=== PATIENT | female | born 1935 | race Caucasian/White ===

== ENCOUNTER 2018-09-21 12:00 | Emergency (ER) | payer MEDICARE | END 2018-09-21 13:29 | disposition home or self-care (01) | LOC: EDH 12:00 | DX: S93.401A Sprain of unspecified ligament of right ankle, initial encounter (principal); I10 Essential (primary) hypertension; E78.5 Hyperlipidemia, unspecified; Z88.2 Allergy status to sulfonamides; Z86.718 Personal history of other venous thrombosis and embolism; X58.XXXA Exposure to other specified factors, initial encounter; Y93.89 Activity, other specified; Y92.89 Other specified places as the place of occurrence of the external cause; Y99.8 Other external cause status | CPT/HCPCS: 73590; 73610 ==

== ENCOUNTER → 2018-10-13 | Outpatient (CLI) | payer MEDICARE | END | disposition home or self-care (01) | LOC: RAH 11:04 | PROVIDERS: ATTEND Radiology Radiation Oncology | DX: D05.11 Intraductal carcinoma in situ of right breast (principal); Z85.3 Personal history of malignant neoplasm of breast | CPT/HCPCS: 77066; G0279 ==

== ENCOUNTER → 2019-10-14 | Outpatient (CLI) | payer MEDICARE | END | disposition home or self-care (01) | LOC: RAH 13:12 | PROVIDERS: ATTEND Radiology Radiation Oncology | DX: Z08 Encounter for follow-up examination after completed treatment for malignant neoplasm (principal); Z85.3 Personal history of malignant neoplasm of breast | CPT/HCPCS: 77066; G0279 ==

== ENCOUNTER → 2020-12-08 | Outpatient (CLI) | payer MEDICARE | END | disposition home or self-care (01) | LOC: RAH 11:00 | PROVIDERS: ATTEND Radiology Radiation Oncology | DX: R92.1 Mammographic calcification found on diagnostic imaging of breast (principal); Z85.3 Personal history of malignant neoplasm of breast | CPT/HCPCS: 77066 ==

== ENCOUNTER → 2022-09-10 | Outpatient (CLI) | payer MEDICARE | END | disposition home or self-care (01) | LOC: SHCH 13:01 | PROVIDERS: ATTEND Internal Medicine | DX: I08.0 Rheumatic disorders of both mitral and aortic valves (principal); I31.39 Other pericardial effusion (noninflammatory); R94.31 Abnormal electrocardiogram [ECG] [EKG] | CPT/HCPCS: 93306 ==

== ENCOUNTER 2022-10-04 11:31 | Inpatient (IN) | payer MEDICARE ==
[~2022-10-04] VITALS: Ht 154.9 cm; Wt 62.4 kg
[2022-10-04] MEDS ORDERED: IPRATROPIUM 0.5 MG/2.5 ML INH IH ONE (12:00)
[2022-10-04 12:03] LABS: BASOPHILS % (AUTO) 0.6 % (0.0-5.0); HEMATOCRIT 47.4 % (36-48); LYMPHOCYTES % (AUTO) 37.6 % (21.0-51.0); MEAN CORPUSCULAR HEMOGLOBIN 29.8 pg (27.0-33.0); MEAN CORPUSCULAR HGB CONC 32.5 g/dL (32.0-36.0); MEAN CORPUSCULAR VOLUME 91.7 fL (79-99); MONOCYTES % (AUTO) 5.8 % (3.0-13.0); NEUTROPHILS % (AUTO) 53.7 % (40.0-77.0); PLATELET COUNT (AUTO) 162 K/uL (130-400); RED BLOOD CELL COUNT(AUTO) 5.17 MIL/uL (4.00-5.50); RED CELL DISTRIBUTION WIDTH 12.7 % (11.0-15.5); WHITE BLOOD COUNT (AUTO) 13.3 K/uL (4.8-10.8)
[2022-10-04 12:09] LABS: ABG BASE EXCESS -9.1 mmol/L (-2.0-3.0); ABG HCO3 22.8 mmol/L (21.0-28.0); ABG OXYGEN SATURATION 97.8 % (95.0-99.0); ABG PCO2 80 mmHg (32-45)
[2022-10-04 12:25] LABS: POTASSIUM 5.5 mmol/L (3.5-5.1)
[2022-10-04 12:36] LABS: ALBUMIN 3.9 g/dL (3.5-5.0); TOTAL PROTEIN, SERUM 7.6 g/dL (6.0-8.3)
[2022-10-04 12:41] LABS: ABG BASE EXCESS -6.9 mmol/L (-2.0-3.0); ABG HCO3 20.7 mmol/L (21.0-28.0); ABG OXYGEN SATURATION 95.7 % (95.0-99.0); ABG PCO2 50 mmHg (32-45)
[2022-10-04 12:47] LABS: B-TYPE NATRIURETIC PEPTIDE 1170 pg/mL (0-100)
[2022-10-04] MEDS ORDERED: FUROSEMIDE 20MG VIAL IV ONE (13:00)
[2022-10-04] MEDS ORDERED: CEFTRIAXONE 2GM VIAL IVPB ONE (13:00)
[2022-10-04] MEDS ORDERED: IPRATROPIUM 0.5 MG/2.5 ML INH IH PRN (13:30)
[2022-10-04 14:03] LABS: HEMOGLOBIN A1C 5.3 % (4.0-6.0)
[2022-10-04] MEDS: DOXYCYCLINE 100MG+NS 250ML IV SCH (14:11)
[2022-10-04 14:27] LABS: MAGNESIUM 1.9 mg/dL (1.80-2.40)
[2022-10-04] MEDS ORDERED: TIOT18CA3 IH (15:08)
[2022-10-04] MEDS ORDERED: METO1TAB13 PO (15:08)
[2022-10-04] MEDS ORDERED: RIVA20TA PO (15:09)
[2022-10-04] MEDS ORDERED: ATOR40TA71 PO (15:12)
[2022-10-04] MEDS ORDERED: LOSA25TA41 PO (15:13)
[2022-10-04] MEDS ORDERED: FUROSEMIDE 40MG VIAL IV ONE (15:30)
[2022-10-04] MEDS ORDERED: NA ZIRCON CYCLOSIL(LOKELMA 10GM) PO ONE (15:30)
[2022-10-04] MEDS ORDERED: FUROSEMIDE 40MG VIAL IV SCH (17:00)
[2022-10-04 17:40] VITALS: BP 113/61
[2022-10-04] MEDS ORDERED: SODIUM CHLORIDE 3% FOR INHALATION 4 ML/AMP VIAL.NEB IH ONE ×2 (18:41→23:16)
[2022-10-04 19:24] VITALS: BP 97/55
[2022-10-04] MEDS: ATORVASTATIN 40 MG TABLET PO SCH (20:36)
[2022-10-04] MEDS: LOSARTAN 25 MG TABLET PO SCH (20:36)
[2022-10-04 21:00] VITALS: BP 90/54
[2022-10-04] MEDS ORDERED: RIVAROXABAN 20 MG TABLET PO SCH (21:00)
[2022-10-04 21:05] LABS: CREATININE 1.1 mg/dL (0.5-1.5); MAGNESIUM 1.6 mg/dL (1.80-2.40); POTASSIUM 4.3 mmol/L (3.5-5.1)
[2022-10-04 22:00] VITALS: BP 109/58
[2022-10-05] VITALS (9 sets, daily range): BP systolic 97–141; BP diastolic 49–93
[2022-10-05] MEDS ORDERED: ASPIRIN 325MG EC TAB PO ONE (00:10)
[2022-10-05] MEDS: DOXYCYCLINE 100MG+NS 250ML IV SCH ×2 (00:23→14:11)
[2022-10-05] MEDS: FUROSEMIDE 40MG VIAL IV SCH ×2 (04:14→16:51)
[2022-10-05] MEDS ORDERED: SODIUM CHLORIDE 3% FOR INHALATION 4 ML/AMP VIAL.NEB IH ONE (06:25)
[2022-10-05 06:48] LABS: HEMATOCRIT 41.5 % (36-48); MEAN CORPUSCULAR HEMOGLOBIN 30.3 pg (27.0-33.0); MEAN CORPUSCULAR HGB CONC 32.5 g/dL (32.0-36.0); MEAN CORPUSCULAR VOLUME 93.3 fL (79-99); RED BLOOD CELL COUNT(AUTO) 4.45 MIL/uL (4.00-5.50); RED CELL DISTRIBUTION WIDTH 12.9 % (11.0-15.5); WHITE BLOOD COUNT (AUTO) 9.9 K/uL (4.8-10.8)
[2022-10-05 07:22] LABS: CREATININE 1.2 mg/dL (0.5-1.5)
[2022-10-05] MEDS: CEFTRIAXONE 1G VIAL IVP SCH (09:02)
[2022-10-05] MEDS ORDERED: METOPROLOL TARTRATE 1 MG/ML 5ML VIAL IV ONE ×2 (17:48)
[2022-10-05] MEDS ORDERED: METOPROLOL TARTRATE 1 MG/ML 5ML VIAL IV SCH (18:00)
[2022-10-05] MEDS ORDERED: AMIODARONE 900MG VIAL 360 MG in DEXTROSE 5%-WATER 200 ML IV SCH (18:30)
[2022-10-05] MEDS ORDERED: HEPARIN 25,000 UNITS/250ML D5W 250 ML IV SCH (18:30)
[2022-10-05 18:39] LABS: BASOPHILS % (AUTO) 0.5 % (0.0-5.0); EOSINOPHILS % (AUTO) 0.6 % (0.0-8.0); HEMATOCRIT 39.7 % (36-48); LYMPHOCYTES % (AUTO) 22.2 % (21.0-51.0); MEAN CORPUSCULAR HEMOGLOBIN 29.9 pg (27.0-33.0); MEAN CORPUSCULAR HGB CONC 33.2 g/dL (32.0-36.0); MONOCYTES % (AUTO) 6.8 % (3.0-13.0); NEUTROPHILS % (AUTO) 69.6 % (40.0-77.0); PLATELET COUNT (AUTO) 196 K/uL (130-400); RED BLOOD CELL COUNT(AUTO) 4.41 MIL/uL (4.00-5.50); RED CELL DISTRIBUTION WIDTH 12.9 % (11.0-15.5); WHITE BLOOD COUNT (AUTO) 9.3 K/uL (4.8-10.8)
[2022-10-05] MEDS ORDERED: AMIODARONE 900MG VIAL 150 MG in DEXTROSE 5%-WATER 100 ML IV SCH (18:45)
[2022-10-05] MEDS: MAGNESIUM 2GM PREMIX 50ML 50 ML IV SCH (19:13)
[2022-10-05 22:46] LABS: MAGNESIUM 2.6 mg/dL (1.80-2.40); POTASSIUM 4.7 mmol/L (3.5-5.1)
[2022-10-05] MEDS ORDERED: HEPARIN 5,000 UNIT VIAL ONE (22:59)
[2022-10-05] MEDS: LOSARTAN 25 MG TABLET PO SCH (23:05)
[2022-10-05] MEDS: ATORVASTATIN 40 MG TABLET PO SCH (23:05)
[2022-10-05] MEDS ORDERED: HEPARIN 5,000 UNIT VIAL IV SCH (23:30)
[2022-10-06 00:18] VITALS: BP 122/63
[2022-10-06] MEDS ORDERED: AMIODARONE 900MG VIAL 540 MG in DEXTROSE 5%-WATER 300 ML IV SCH (00:30)
[2022-10-06] MEDS: DOXYCYCLINE 100MG+NS 250ML IV SCH ×2 (02:08→14:06)
[2022-10-06 03:18] VITALS: BP 124/63
[2022-10-06 04:08] LABS: BASOPHILS % (AUTO) 0.4 % (0.0-5.0); EOSINOPHILS % (AUTO) 1.9 % (0.0-8.0); HEMATOCRIT 38.7 % (36-48); LYMPHOCYTES % (AUTO) 25.5 % (21.0-51.0); MEAN CORPUSCULAR HEMOGLOBIN 30.3 pg (27.0-33.0); MEAN CORPUSCULAR HGB CONC 32.8 g/dL (32.0-36.0); MEAN CORPUSCULAR VOLUME 92.4 fL (79-99); MONOCYTES % (AUTO) 9.1 % (3.0-13.0); NEUTROPHILS % (AUTO) 62.7 % (40.0-77.0); PLATELET COUNT (AUTO) 194 K/uL (130-400); RED BLOOD CELL COUNT(AUTO) 4.19 MIL/uL (4.00-5.50); RED CELL DISTRIBUTION WIDTH 13.1 % (11.0-15.5); WHITE BLOOD COUNT (AUTO) 9.4 K/uL (4.8-10.8)
[2022-10-06 05:25] LABS: CREATININE 1.4 mg/dL (0.5-1.5); POTASSIUM 4.1 mmol/L (3.5-5.1)
[2022-10-06] MEDS: FUROSEMIDE 40MG VIAL IV SCH (06:02)
[2022-10-06 08:00] VITALS: BP 116/61
[2022-10-06] MEDS: CEFTRIAXONE 1G VIAL IVP SCH (09:14)
[2022-10-06 12:00] VITALS: BP 122/57
[2022-10-06 16:00] VITALS: BP 116/91
[2022-10-06] MEDS: BUDESONIDE 0.5 MG/2 ML INH IH SCH (18:21)
[2022-10-06 20:00] VITALS: BP 156/87
[2022-10-06] MEDS: LOSARTAN 25 MG TABLET PO SCH (20:54)
[2022-10-06] MEDS: ATORVASTATIN 40 MG TABLET PO SCH (20:54)
[2022-10-06] MEDS ORDERED: AMIODARONE 150MG VIAL ONE (23:47)
[2022-10-07] VITALS (13 sets, daily range): BP systolic 107–160; BP diastolic 48–88
[2022-10-07] MEDS ORDERED: AMIODARONE 150MG VIAL 150 MG in DEXTROSE 5%-WATER 100 ML IV SCH ×2
[2022-10-07] MEDS ORDERED: AMIODARONE 900MG VIAL 360 MG in DEXTROSE 5%-WATER 200 ML IV SCH ×2
[2022-10-07] MEDS: DOXYCYCLINE 100MG+NS 250ML IV SCH ×2 (00:29→12:55)
[2022-10-07 02:10] LABS: BASOPHILS % (AUTO) 0.6 % (0.0-5.0); EOSINOPHILS % (AUTO) 1.6 % (0.0-8.0); LYMPHOCYTES % (AUTO) 23.1 % (21.0-51.0); MEAN CORPUSCULAR HEMOGLOBIN 30.5 pg (27.0-33.0); MEAN CORPUSCULAR HGB CONC 33.5 g/dL (32.0-36.0); MEAN CORPUSCULAR VOLUME 90.9 fL (79-99); NEUTROPHILS % (AUTO) 65.4 % (40.0-77.0); PLATELET COUNT (AUTO) 185 K/uL (130-400); RED BLOOD CELL COUNT(AUTO) 4.07 MIL/uL (4.00-5.50); RED CELL DISTRIBUTION WIDTH 12.9 % (11.0-15.5); WHITE BLOOD COUNT (AUTO) 8.6 K/uL (4.8-10.8)
[2022-10-07 02:17] LABS: CREATININE 1.1 mg/dL (0.5-1.5); POTASSIUM 3.9 mmol/L (3.5-5.1)
[2022-10-07] MEDS ORDERED: AMIODARONE 900MG VIAL 540 MG in DEXTROSE 5%-WATER 300 ML IV SCH ×2 (06:00→07:30)
[2022-10-07] MEDS: BUDESONIDE 0.5 MG/2 ML INH IH SCH ×2 (06:59→19:01)
[2022-10-07] MEDS ORDERED: VERAPAMIL HCL 2.5 MG/ML VIAL ONE (07:09)
[2022-10-07] MEDS ORDERED: LIDOCAINE HCL 400MG/20ML VIAL ONE (07:09)
[2022-10-07] MEDS ORDERED: HEPARIN 10,000 UNIT/10ML (1,000 UNIT/ML) VIAL ONE (07:09)
[2022-10-07] MEDS ORDERED: IOHEXOL 350 MG/ML 100ML INFUS..BTL IV ONE (07:09)
[2022-10-07] MEDS ORDERED: NITROGLYCERIN 50MG VIAL ONE (07:09)
[2022-10-07] MEDS ORDERED: FENTANYL CITRATE PF 50 MCG/1 ML 2ML VIAL ONE (08:00)
[2022-10-07] MEDS ORDERED: MIDAZOLAM HCL 1 MG/ML 2ML VIAL ONE (08:00)
[2022-10-07] MEDS: FUROSEMIDE 40 MG TABLET PO SCH ×2 (08:17→09:47)
[2022-10-07] MEDS ORDERED: 0.9%NACL 1000ML 1,000 ML IV SCH (08:30)
[2022-10-07] MEDS ORDERED: GLUCAGON 1MG KIT 1 MG ML IM PRN (08:30)
[2022-10-07] MEDS ORDERED: DEXTROSE 50%-WATER 50 ML DISP.SYRIN IV PRN (08:30)
[2022-10-07] MEDS: METOPROLOL SUCCINATE 25 MG TAB.SR.24H PO SCH (09:46)
[2022-10-07] MEDS: CEFTRIAXONE 1G VIAL IVP SCH (09:47)
[2022-10-07] MEDS: MAGNESIUM 2GM PREMIX 50ML 50 ML IV SCH (11:07)
[2022-10-07] MEDS: RIVAROXABAN 15 MG TABLET PO SCH (17:44)
[2022-10-07] MEDS: LOSARTAN 25 MG TABLET PO SCH (19:59)
[2022-10-07] MEDS: ATORVASTATIN 40 MG TABLET PO SCH (19:59)
[2022-10-08] VITALS: BP 147/79
[2022-10-08 03:50] VITALS: BP_SYST 126; BP_SYST 135; BP_DIAS 55; BP_DIAS 71
[2022-10-08] MEDS: BUDESONIDE 0.5 MG/2 ML INH IH SCH (06:50)
[2022-10-08 07:08] VITALS: BP 152/97
[2022-10-08] MEDS: METOPROLOL SUCCINATE 25 MG TAB.SR.24H PO SCH (07:23)
[2022-10-08] MEDS: FUROSEMIDE 40 MG TABLET PO SCH (08:23)
[2022-10-08] MEDS ORDERED: METOPROLOL SUCCINATE 50 MG TAB.SR.24H PO SCH (09:00)
[2022-10-08 12:28] VITALS: BP 140/75
[2022-10-08 13:43] LABS: ALBUMIN 3.5 g/dL (3.5-5.0); CREATININE 1.1 mg/dL (0.5-1.5); MAGNESIUM 1.7 mg/dL (1.80-2.40); POTASSIUM 4.1 mmol/L (3.5-5.1); TOTAL PROTEIN, SERUM 7.2 g/dL (6.0-8.3)
[2022-10-08] MEDS: MAGNESIUM 2GM PREMIX 50ML 50 ML IV SCH (15:03)
[2022-10-08] MEDS: RIVAROXABAN 15 MG TABLET PO SCH (16:12)
[2022-10-08 16:52] VITALS: BP 156/72
[2022-10-08] MEDS ORDERED: FURO40TA7 PO (17:47)
== END 2022-10-08 19:17 | disposition home or self-care (01) | DRG 280 ==
LOC: EDH 11:31 → EDHIP 13:24 → 2DH 17:41
PROVIDERS: ADMIT Internal Medicine; ATTEND Internal Medicine
PROC: 5A09357 Assistance with Respiratory Ventilation, Less than 24 Consecutive Hours, Continuous Positive Airway Pressure (ICD-10-PCS; 2022-10-04)
PROC: 4A023N7 Measurement of Cardiac Sampling and Pressure, Left Heart, Percutaneous Approach (ICD-10-PCS; principal; 2022-10-07)
PROC: B2111ZZ Fluoroscopy of Multiple Coronary Arteries using Low Osmolar Contrast (ICD-10-PCS; 2022-10-07)
DX: I11.0 Hypertensive heart disease with heart failure (principal); I21.4 Non-ST elevation (NSTEMI) myocardial infarction; I50.43 Acute on chronic combined systolic (congestive) and diastolic (congestive) heart failure; J96.22 Acute and chronic respiratory failure with hypercapnia; J96.21 Acute and chronic respiratory failure with hypoxia; J18.9 Pneumonia, unspecified organism; E87.29 Other acidosis; N17.9 Acute kidney failure, unspecified; I31.39 Other pericardial effusion (noninflammatory); I25.10 Atherosclerotic heart disease of native coronary artery without angina pectoris; Z20.822 Contact with and (suspected) exposure to COVID-19; I48.91 Unspecified atrial fibrillation; E78.00 Pure hypercholesterolemia, unspecified; E87.5 Hyperkalemia; J45.909 Unspecified asthma, uncomplicated; Z79.899 Other long term (current) drug therapy; Z79.01 Long term (current) use of anticoagulants; I25.2 Old myocardial infarction; Z86.718 Personal history of other venous thrombosis and embolism; Z85.3 Personal history of malignant neoplasm of breast; Z90.10 Acquired absence of unspecified breast and nipple; Z92.21 Personal history of antineoplastic chemotherapy; Z92.3 Personal history of irradiation
CPT/HCPCS: 36415; 36600; 71045; 80048; 80053; 82550; 82803; 83036; 83605; 83735; 83874; 83880; 84132; 84145; 84443; 84484; 85025; 85027; 85730; 87040; 87071; 87205; 87635; 87804; 93005; 93306; 93356; 93458; 94640; 94660; 96374; 96375; 99156; 99157; 99291; C1769; G0378; J0282; J0696; J1644; J1940; J2250; J3010; J3475; J3490; J7060; Q9967

== ENCOUNTER → 2022-10-04 | Outpatient (CLI) | payer MEDICARE ==
[~2022-10-04] MED LIST: ATOR40TA71 PO; FURO40TA7 PO; LOSA25TA41 PO; METO1TAB13 PO; RIVA20TA PO; TIOT18CA3 IH
[2022-10-04 11:37] LABS: BASOPHILS % (AUTO) 0.7 % (0.0-5.0); EOSINOPHILS % (AUTO) 2.6 % (0.0-8.0); HEMATOCRIT 44.4 % (36-48); MEAN CORPUSCULAR HEMOGLOBIN 30.1 pg (27.0-33.0); MEAN CORPUSCULAR HGB CONC 32.7 g/dL (32.0-36.0); MEAN CORPUSCULAR VOLUME 92.1 fL (79-99); MONOCYTES % (AUTO) 6.6 % (3.0-13.0); NEUTROPHILS % (AUTO) 60.8 % (40.0-77.0); PLATELET COUNT (AUTO) 203 K/uL (130-400); RED BLOOD CELL COUNT(AUTO) 4.82 MIL/uL (4.00-5.50); RED CELL DISTRIBUTION WIDTH 12.9 % (11.0-15.5); WHITE BLOOD COUNT (AUTO) 10.5 K/uL (4.8-10.8)
[2022-10-04 11:51] LABS: POTASSIUM 5.2 mmol/L (3.5-5.1)
[2022-10-04 11:56] LABS: INR 1.33 (0.85-1.15); PROTHROMBIN TIME 14.3 SEC (9.6-11.6)
[2022-10-04 11:57] LABS: PARTIAL THROMBOPLASTIN TIME 40.4 SEC (26.3-35.5)
[2022-10-04 11:58] LABS: APPEARANCE,URINE CLEAR (CLEAR); BILIRUBIN,URINE NEGATIVE (NEGATIVE); COLOR,URINE COLORLESS (YELLOW); GLUCOSE, URINE (UA) NEGATIVE (NEGATIVE); KETONES,URINE NEGATIVE (NEGATIVE); LEUKOCYTE ESTERASE ,URINE NEGATIVE Leu/uL (NEGATIVE); NITRATE,URINE NEGATIVE (NEGATIVE); OCCULT BLOOD,URINE NEGATIVE (NEGATIVE); PH,URINE 6.5 (5.0-8.0); PROTEIN,URINE NEGATIVE (NEGATIVE); UROBILINOGEN,URINE 0.2 mg/dL (0.2-1.0)
[2022-10-04 12:19] LABS: B-TYPE NATRIURETIC PEPTIDE 823 pg/mL (0-100)
== END | disposition home or self-care (01) ==
LOC: DAH 10:00 → EDSTATUS 10:00
PROVIDERS: ATTEND Internal Medicine
DX: Z01.810 Encounter for preprocedural cardiovascular examination (principal); I42.9 Cardiomyopathy, unspecified; Z79.01 Long term (current) use of anticoagulants; Z79.899 Other long term (current) drug therapy; Z88.2 Allergy status to sulfonamides; Z91.040 Latex allergy status; Z88.8 Allergy status to other drugs, medicaments and biological substances
CPT/HCPCS: 36415; 80048; 81003; 83880; 85025; 85610; 85730

== ENCOUNTER → 2023-01-02 | Outpatient (CLI) | payer MEDICARE ==
[2023-01-02 13:15] LABS: CREATININE 1.1 mg/dL (0.5-1.5); POTASSIUM 4.9 mmol/L (3.5-5.1)
== END | disposition home or self-care (01) ==
LOC: LAB 08:18
PROVIDERS: ATTEND Internal Medicine
DX: I42.8 Other cardiomyopathies (principal)
CPT/HCPCS: 36415; 80048

== ENCOUNTER → 2023-04-08 | Outpatient (CLI) | payer MEDICARE ==
[2023-04-08 16:16] LABS: BASOPHILS # (AUTO) 0.04 K/uL (0.00-0.20); BASOPHILS % (AUTO) 0.6 % (0.0-5.0); EOSINOPHILS # (AUTO) 0.25 K/uL (0.00-0.70); EOSINOPHILS % (AUTO) 3.5 % (0.0-8.0); IMMATURE GRANULOCYTE ABSOLUTE 0.02 K/uL (0-1); LYMPHOCYTES % (AUTO) 27.7 % (21.0-51.0); MEAN CORPUSCULAR HEMOGLOBIN 30.7 pg (27.0-33.0); MEAN CORPUSCULAR HGB CONC 33.5 g/dL (32.0-36.0); MEAN CORPUSCULAR VOLUME 91.6 fL (79-99); MONOCYTES # (AUTO) 0.7 K/uL (0.1-1.0); MONOCYTES % (AUTO) 9.3 % (3.0-13.0); NEUTROPHILS # (AUTO) 4.2 K/uL (1.8-7.7); NEUTROPHILS % (AUTO) 58.6 % (40.0-77.0); PLATELET COUNT (AUTO) 244 K/uL (130-400); RED BLOOD CELL COUNT(AUTO) 4.04 MIL/uL (4.00-5.50); RED CELL DISTRIBUTION WIDTH 13.2 % (11.0-15.5); WHITE BLOOD COUNT (AUTO) 7.2 K/uL (4.8-10.8)
[2023-04-08 16:42] LABS: CREATININE 1.2 mg/dL (0.5-1.5)
== END | disposition home or self-care (01) ==
LOC: LAB 13:51
PROVIDERS: ATTEND Internal Medicine
DX: I42.8 Other cardiomyopathies (principal)
CPT/HCPCS: 36415; 80048; 83880; 85025

== ENCOUNTER → 2024-04-09 | Outpatient (CLI) | payer MEDICARE ==
[2024-04-12 10:59] LABS: CREATININE 1.1 mg/dL (0.5-1.0)
== END | disposition home or self-care (01) ==
LOC: LAB 15:02
PROVIDERS: ATTEND Internal Medicine
DX: R10.13 Epigastric pain (principal)
CPT/HCPCS: 36415; 82565; 84520

== ENCOUNTER → 2024-04-14 | Outpatient (CLI) | payer MEDICARE ==
[~2024-04-14] MED LIST changes: +GADOTERATE MEGLUMINE 10 MMOL/20 ML VIAL IV ONE
== END | disposition home or self-care (01) ==
LOC: RAH 07:52
PROVIDERS: ATTEND Internal Medicine
DX: K80.20 Calculus of gallbladder without cholecystitis without obstruction (principal); N28.1 Cyst of kidney, acquired; R10.13 Epigastric pain; R94.5 Abnormal results of liver function studies; R93.2 Abnormal findings on diagnostic imaging of liver and biliary tract; R11.2 Nausea with vomiting, unspecified
CPT/HCPCS: 74183; A9575

== ENCOUNTER → 2024-05-10 | Outpatient (CLI) | payer MEDICARE ==
[~2024-05-10] MED LIST changes: -GADOTERATE MEGLUMINE 10 MMOL/20 ML VIAL IV ONE
[2024-05-10 14:39] LABS: BASOPHILS # (AUTO) 0.04 K/uL (0.00-0.20); BASOPHILS % (AUTO) 0.6 % (0.0-5.0); EOSINOPHILS # (AUTO) 0.15 K/uL (0.00-0.70); EOSINOPHILS % (AUTO) 2.3 % (0.0-8.0); HEMATOCRIT 40.2 % (36-48); IMMATURE GRANULOCYTE ABSOLUTE 0.01 K/uL (0-1); LYMPHOCYTES # (AUTO) 2.1 K/uL (1.0-4.8); LYMPHOCYTES % (AUTO) 31.5 % (21.0-51.0); MEAN CORPUSCULAR HEMOGLOBIN 31.8 pg (27.0-33.0); MEAN CORPUSCULAR HGB CONC 33.3 g/dL (32.0-36.0); MEAN CORPUSCULAR VOLUME 95.3 fL (79-99); MONOCYTES # (AUTO) 0.5 K/uL (0.1-1.0); MONOCYTES % (AUTO) 7.2 % (3.0-13.0); NEUTROPHILS # (AUTO) 3.8 K/uL (1.8-7.7); NEUTROPHILS % (AUTO) 58.2 % (40.0-77.0); PLATELET COUNT (AUTO) 207 K/uL (130-400); RED BLOOD CELL COUNT(AUTO) 4.22 MIL/uL (4.00-5.50); RED CELL DISTRIBUTION WIDTH 12.9 % (11.0-15.5); WHITE BLOOD COUNT (AUTO) 6.5 K/uL (4.8-10.8)
[2024-05-10 14:51] LABS: ALBUMIN 3.3 g/dL (3.5-5.0); BILIRUBIN,TOTAL 0.5 mg/dL (0.2-1.0); CREATININE 1.2 mg/dL (0.5-1.0); POTASSIUM 4.7 mmol/L (3.5-5.1)
[2024-05-10 14:55] LABS: INR 1.29 (0.85-1.15); PROTHROMBIN TIME 13.7 SEC (9.6-11.6)
[2024-05-10 14:57] LABS: PARTIAL THROMBOPLASTIN TIME 32.8 SEC (26.3-35.5)
== END | disposition home or self-care (01) ==
LOC: LAB 14:03
PROVIDERS: ATTEND Internal Medicine Gastroenterology
DX: R10.13 Epigastric pain (principal); R94.5 Abnormal results of liver function studies; R93.2 Abnormal findings on diagnostic imaging of liver and biliary tract
CPT/HCPCS: 36415; 80053; 85025; 85610; 85730

== ENCOUNTER → 2024-06-17 | Outpatient (CLI) | payer MEDICARE ==
[2024-06-17 14:24] LABS: BASOPHILS # (AUTO) 0.05 K/uL (0.00-0.20); BASOPHILS % (AUTO) 0.8 % (0.0-5.0); EOSINOPHILS # (AUTO) 0.18 K/uL (0.00-0.70); EOSINOPHILS % (AUTO) 2.8 % (0.0-8.0); HEMATOCRIT 40.4 % (36-48); IMMATURE GRANULOCYTE ABSOLUTE 0.01 K/uL (0-1); LYMPHOCYTES # (AUTO) 1.9 K/uL (1.0-4.8); LYMPHOCYTES % (AUTO) 29.6 % (21.0-51.0); MEAN CORPUSCULAR HEMOGLOBIN 31.5 pg (27.0-33.0); MEAN CORPUSCULAR HGB CONC 33.4 g/dL (32.0-36.0); MEAN CORPUSCULAR VOLUME 94.2 fL (79-99); MONOCYTES # (AUTO) 0.5 K/uL (0.1-1.0); MONOCYTES % (AUTO) 7.4 % (3.0-13.0); NEUTROPHILS # (AUTO) 3.9 K/uL (1.8-7.7); NEUTROPHILS % (AUTO) 59.2 % (40.0-77.0); PLATELET COUNT (AUTO) 199 K/uL (130-400); RED BLOOD CELL COUNT(AUTO) 4.29 MIL/uL (4.00-5.50); RED CELL DISTRIBUTION WIDTH 12.9 % (11.0-15.5); WHITE BLOOD COUNT (AUTO) 6.5 K/uL (4.8-10.8)
[2024-06-17 14:35] LABS: INR 1.18 (0.85-1.15); PROTHROMBIN TIME 12.6 SEC (9.6-11.6)
[2024-06-17 14:36] LABS: PARTIAL THROMBOPLASTIN TIME 31.6 SEC (26.3-35.5)
[2024-06-17 14:38] LABS: ALBUMIN 3.3 g/dL (3.5-5.0); BILIRUBIN,TOTAL 0.4 mg/dL (0.2-1.0); CREATININE 1.2 mg/dL (0.5-1.0); POTASSIUM 4.7 mmol/L (3.5-5.1); TOTAL PROTEIN, SERUM 6.7 g/dL (6.0-8.3)
== END | disposition home or self-care (01) ==
LOC: RAH 12:59
PROVIDERS: ATTEND Nurse Practitioner Adult Health
DX: R94.5 Abnormal results of liver function studies (principal); R92.333 Mammographic heterogeneous density, bilateral breasts; Z85.3 Personal history of malignant neoplasm of breast; Z79.01 Long term (current) use of anticoagulants
CPT/HCPCS: 36415; 77066; 80053; 85025; 85610; 85730

== ENCOUNTER → 2024-07-21 | Outpatient (CLI) | payer MEDICARE ==
--- NOTE | 2024-07-21 13:14 | HMCIMG ---
SHOULDER COMP 2+VWS RT HISTORY: Right shoulder pain COMPARISON: 07/21/2000 TECHNIQUE: 2 images of right shoulder were obtained. FINDINGS: There is no acute displaced fracture or dislocation. Degenerative changes are seen. IMPRESSION: 1. Findings as described above.
--- NOTE | 2024-07-21 13:17 | HMCIMG ---
CERV SPINE 2-3VWS HISTORY: Pain COMPARISON: None FINDINGS: 4 images of cervical spine were obtained. There is levoscoliosis of the cervical spine. There is reversal of normal lordotic curvature which may be related to muscle spasm or positioning. There are degenerative changes with cervical spine spondylosis. No loss of vertebral height is seen. No fracture or dislocation is seen. Degenerative changes are seen. IMPRESSION: 1. No fracture is seen. DJD with cervical spine spondylosis.
== END | disposition home or self-care (01) ==
LOC: RAH 12:28
PROVIDERS: ATTEND Nurse Practitioner Adult Health
DX: M19.011 Primary osteoarthritis, right shoulder (principal); M47.812 Spondylosis without myelopathy or radiculopathy, cervical region; M41.82 Other forms of scoliosis, cervical region; M25.511 Pain in right shoulder; M54.6 Pain in thoracic spine
CPT/HCPCS: 72040; 73030

== ENCOUNTER → 2025-07-19 | Outpatient (CLI) | payer MEDICARE, OTHER ==
--- NOTE | 2025-07-20 15:55 | HMCIMG ---
DIGITAL bilateral DIAGNOSTIC MAMMOGRAM Technique: The digital mammographic examination of both breasts in craniocaudal, mediolateral oblique views along with CAD was obtained. Spot compression of both breasts were also obtained. History: This is a 89 years year-old female 0, para0 Ab0 . Patient has had left breast biopsy 1994 with pathological finding of malignancy patient underwent lumpectomy along with radiation and chemotherapy 1994. In the right breast patient had a right breast biopsy in 2012 underwent lumpectomy and radiation therapy. Patient has maternal aunt x3 and paternal aunt x1 with family history of breast cancer. Patient has no complaint Reference:Prior mammogram from 06/17/2024, 04/14/2024, 03/14/2023 are available for comparison.. Breast composition: Breast composition D: The breasts are extremely dense, which lowers the sensitivity of mammography. Finding: The digital mammographic examination of both breasts in craniocaudal and mediolateral oblique view along with CAD demonstrates to BE dense. Both breasts are deformed from prior lumpectomy specimen the left breast. There are multiple surgical clips seen in the right breast. There are multiple solitary macrocalcification seen in both breasts.. There is no evidence of any dendritic mass, cluster microcalcification or architectural distortion. The retromammary fat appears to be normal. IMPRESSION: Unchanged from prior mammography. NO RADIOGRAPHIC EVIDENCE OF MALIGNANT CHANGES. WE WOULD RECOMMEND ANNUAL FOLLOW UP WITH TOMOSYNTHESIS UNLESS OTHERWISE CLINICALLY INDICATED. I would recommend annual bilateral breast sonogram due to dense breasts. FINAL ASSESSMENT: ACR: BI-RAD- 2. Benign Finding. NOTE: IF A WORK-UP OF THIS PATIENT LEADS TO A BIOPSY, PLEASE FORWARD A COPY OF THE PATHOLOGY REPORT TO OUR OFFICE REQUIRED BY SA EFFECTIVE MAY 18, 1994. A NEGATIVE MAMMOGRAM SHOULD NOT PRECLUDE BIOPSY OF A CLINICALLY PALPABLE SUSPICIOUS MASS, 10% OF BREAST CANCERS ARE MAMMOGRAPHICALLY OCCULT. THIS MAMMOGRAPHY FACILITY IS FULLY ACCREDITED BY THE FOOD AND DRUG [employer]MINISTRATION (FDA). THANK YOU FOR THIS REFERRAL.
== END | disposition home or self-care (01) ==
LOC: RAH 10:51
PROVIDERS: ATTEND Nurse Practitioner Adult Health
DX: R92.343 Mammographic extreme density, bilateral breasts (principal); Z80.3 Family history of malignant neoplasm of breast
CPT/HCPCS: 77066